=== PATIENT | male | born 1935 | race Hispanic/Latino ===

== ENCOUNTER 2020-05-26 08:59 | Outpatient (CLI) | payer MEDICARE, MEDICAID ==
--- NOTE | 2020-05-26 12:01 | ULT ---
ABDOMINAL ULTRASOUND: Date: 05/26/2020 HISTORY: Abdominal pain. FINDINGS: The left lobe of the liver is not satisfactory visualized. The visualized portions of the liver demon strate heterogeneous echogenicity without focal mass or abnormal biliary ductal dilatation. No gallst ones, gallbladder wall thickening, or pericholecystic fluid is seen. The common duct measures 6.0 mm in diameter. The visualized portions of the pancreas, aorta, and IVC are unremarkable. No hydronephro sis seen on either side. There is a 2.2 cm cyst in the right kidney. No free fluid is seen. IMPRESSION: 1. 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 2. No evidence of cholelithiasis. 3. Right renal cyst. POS: [facility]
== END 2020-05-26 09:00 | disposition home or self-care (01) ==
LOC: BICULT 08:59
PROVIDERS: ATTEND Physician Assistant Medical
DX: R10.33 Periumbilical pain (principal); R19.4 Change in bowel habit; N28.1 Cyst of kidney, acquired; R93.2 Abnormal findings on diagnostic imaging of liver and biliary tract
CPT/HCPCS: 93975